=== PATIENT | female | born 2000 | race Hispanic/Latino ===

== ENCOUNTER 2023-05-10 10:00 | Emergency (ER) | payer OTHER ==
[~2023-05-10] VITALS: Ht 157.5 cm; Wt 87.1 kg
[2023-05-10 10:01] VITALS: PULSE 88; RESP 16
[2023-05-10 12:03] LABS: HIV 1&2 ANTIBODY Non-Reactive (Negative)
[2023-05-10 12:04] LABS: HIV-1 p24 Antigen Non-Reactive (Negative)
[2023-05-11 02:06] LABS: HEPATITIS B CORE AB TOTAL Non-Reactive (Nonreactive); HEPATITIS C ANTIBODY Non-Reactive (Nonreactive)
[2023-05-11 02:49] LABS: HEPATITIS B SURFACE ANTIBODY Positive (Reactive)
== END 2023-05-10 11:01 | disposition home or self-care (01) ==
LOC: EDH 10:00
DX: S69.82XA Other specified injuries of left wrist, hand and finger(s), initial encounter (principal); R06.02 Shortness of breath; W46.0XXA Contact with hypodermic needle, initial encounter; Y93.89 Activity, other specified; Y92.89 Other specified places as the place of occurrence of the external cause; Y99.8 Other external cause status
CPT/HCPCS: 36415; 86701; 86704; 86706; 86803; 87390

== ENCOUNTER 2024-02-13 13:23 | Emergency (ER) | payer OTHER ==
[~2024-02-13] VITALS: Ht 157.5 cm; Wt 83.9 kg
[2024-02-13 13:29] VITALS: BP 110/66; PULSE 81; RESP 16; TEMP 97.9; O2SAT 96
--- NOTE | 2024-02-13 14:18 | NUR ---
CONSENT FOR LAB WAS OBTAINED FROM PT.
[2024-02-13 15:15] LABS: HIV 1&2 ANTIBODY Non-Reactive (Negative)
[2024-02-13 15:16] LABS: HIV-1 p24 Antigen Non-Reactive (Negative)
--- NOTE | 2024-02-13 15:31 | ERN ---
ED Note History of Present Illness Stated Complaint: NEEDLE STICK Chief Complaint: Needle Stick Time Seen by MD: 13:36 Time Seen by Midlevel: 13:40 Dictation: 23 year old patient got needles stick while working. Right 2nd finger. No other complaints Allergies: Coded Allergies: No Known Drug Allergies (Unverified Allergy, Unknown, 05/10/23) Home Meds Active Scripts Raltegravir Potassium (Isentress) 400 Mg Tab, 1 TAB PO BID for 28 Days, #60 TAB 0 Refills Prov:WILIAM NORIEGA EPIC RADIANT ANALYST 02/13/24 Emtricitabine/Tenofovir (Tdf) (Emtricitabine-Tenofv 200-300Mg) 200 Mg-300 Mg Tablet, 1 TAB PO DAILY for 30 Days, #28 TAB 0 Refills Prov:WILIAM NORIEGA EPIC RADIANT ANALYST 02/13/24 Past Medical History Past Medical History: No Pertinent History Surgical History: None History: Not Applicable LMP: Feb 10, 2024 Review of System Dictation Constitutional: Negative for fever,chills, and weight loss Eyes: Negative for injury, pain,redness, and discharge ENT: Negative for injury,pain or swelling Cardiovascular: Negative for chest pain, palpitations, and edema Respiratory: Negative for shortness of breath, cough, and wheezing, Abdomen/GI: Negative for abdominal pain, nausea, vomiting, diarrhea, and constipation Back: Negative for injury and pain : Negative for injury, bleeding and discharge MS/Extremity: Negative for injury and deformity Skin: Negative for rash, and discoloration Neuro: Negative for headache, weakness, numbness, tingling, and seizure Psych: Negative for suicide ideation, homicidal ideation, and hallucinations Review of Systems: was completed Initial Vital Sign VS Vital Signs Date Time Temp Pulse Resp B/P (MAP) Pulse Ox O2 Delivery O2 Flow Rate FiO2 02/13/24 13:25 97.9 80 16 110/60 97 Room Air 0 02/13/24 13:29 21 Physical Exam Dictation General: awake, alert, NAD Head/Face: Normocephalic, atraumatic Eyes: PERRL, EOMI, vision at baseline ENT: oral cavity clear, TMs clear, no signs of infection Neck: Trachea midline, supple, no nuchal rigidity Cardiovascular: RRR, normal S1/S2, No MRGs, no JVD Respiratory: CTAB, no respiratory distress, No rales or wheezes Abdomen: Soft, non-tender, non-distended, normal bowel sounds, no guarding or rebound. Skin: Warm, dry, normal turgor, no rash MS/Extremity: Pulses equal, no cyanosis, neurovascular intact, FROM Neuro: COAx4, GCS 15, strength 5/5, CN 2-12 intact, normal cerebellar exam, normal gait, Psych: Normal behavior, mood, and affect normal Results (Laboratory/Radiology) Laboratory/Radiology Laboratory Tests Test 02/13/24 13:59 Hepatitis B Surface Antigen. Non-Reactive (Nonreactive) Hepatitis B Surface Antibody. Positive (Reactive) Hepatitis B Core Total Antibody. Non-Reactive (Nonreactive) Hepatitis C Antibody Non-Reactive (Nonreactive) HIV (1&2) Antibody Non-Reactive (Negative) HIV P24 Antigen, Qualitative Non-Reactive (Negative) Labs Reviewed?: Yes ED Course ED Course Orders Procedure Category Date Status Time Hiv 1-2 W/Reflex To LAB 02/13/24 Complete Confirm 13:43 Hepatitis B Core Total LAB 02/13/24 Complete 13:43 Hepatitis B Surface LAB 02/13/24 Complete Antibody 13:43 Hepatitis B Surface LAB 02/13/24 Complete Antigen 13:43 Hepatitis C Ab LAB 02/13/24 Complete W/Reflex To Pcr 13:43 Vital Signs Date Time Temp Pulse Resp B/P (MAP) Pulse Ox O2 Delivery O2 Flow Rate FiO2 02/13/24 13:29 97.9 81 16 110/66 96 Room Air* 0 21 02/13/24 13:25 97.9 80 16 110/60 97 Room Air 0 Medical Decision Making MDM MDM: 23 year old patient got needles stick while working. Right 2nd finger. No other complaints. HIV nonreactive, [facility] after the the HIV results no need to it for the HEPB. Patient was called back her +lactic HIV medication, hospital policy. Differential diagnosis: Needlestick, HIV, hep B Rationale: Tests considered and ordered secondary to shared decision making include: Previous outside records reviewed: Old ER visits. Risk of complication and/or morbidity or mortality of patient management: None Medications-Per medication reconciliation Need for hospitalization: Patient does not meet criteria for hospitalization. Need for emergency major/minor surgery: No There are no social concerns with this patient. Prescription drug management Prescriptions will include symptomatic care Patient's prior external medical records from other ER visits were reviewed by me as indicated. Prior testing and results from previous visits were reviewed. Prior tests were taken into account with medical decision making and resource utilization, independent historian/historians were used to obtain complete medical history. I independently interpreted the test that were performed, results were reviewed by me and considered findings on radiology if ordered. Medical management and examination interpretation discussions were had by me with other qualified healthcare professionals as indicated for the patient's care. DX & DISP Disposition: Discharge Departure Impression: Primary Impression: Needle stick injury of finger of right hand Condition: Stable Scripts Raltegravir Potassium (Isentress) 400 Mg Tab 1 TAB PO BID for 28 Days, #60 TAB 0 Refills Prov: WILIAM NORIEGA NP 02/13/24 Emtricitabine/Tenofovir (Tdf) (Emtricitabine-Tenofv 200-300Mg) 200 Mg-300 Mg Tablet 1 TAB PO DAILY for 30 Days, #28 TAB 0 Refills Prov: WILIAM NORIEGA NP 02/13/24 Additional Instructions: Return to ER if you notice any signs of infection. Follow up with for the rest of your results. Referrals: SELF,REFERRAL (PCP) Time of Disposition: 15:31 I have reviewed the case, and I agree with, Diagnosis and Plan I performed this substantive portion of this visit. I have reviewed and personally made and approve the management plan that is documented in the note by myself or the CHARLES. I acknowledge full responsibility for the patient's management plan. WILIAM NORIEGA NP Feb 13, 2024 15:31 EMILY GOLDEN MD Feb 14, 2024 10:09
[2024-02-13] MEDS ORDERED: EMTR1TAB23 PO (17:34)
[2024-02-13] MEDS ORDERED: RALT400T PO (17:34)
--- NOTE | 2024-02-13 18:02 | NUR ---
PT TO CALL TOMORROW HERE TO ED TO REMIND ME TO CALL EMPLOYEE HEALTH NURSE SO THAT WE CAN ASK ABOUT HER SENDING IN A [employer] COMP FORM [place] [facility] [place] [facility] [place] S[facility]
[2024-02-13 21:17] LABS: HEPATITIS B SURFACE ANTIBODY Positive (Reactive)
[2024-02-13 21:18] LABS: HEPATITIS B CORE AB TOTAL Non-Reactive (Nonreactive); HEPATITIS B SURFACE ANTIGEN Non-Reactive (Nonreactive); HEPATITIS C ANTIBODY Non-Reactive (Nonreactive)
== END 2024-02-13 18:02 | disposition home or self-care (01) ==
LOC: EDH 13:23
DX: S61.230A Puncture wound without foreign body of right index finger without damage to nail, initial encounter (principal); Z77.21 Contact with and (suspected) exposure to potentially hazardous body fluids; Z79.624 Long term (current) use of inhibitors of nucleotide synthesis; W46.0XXA Contact with hypodermic needle, initial encounter; Y93.89 Activity, other specified; Y92.89 Other specified places as the place of occurrence of the external cause; Y99.8 Other external cause status
CPT/HCPCS: 36415; 86701; 86704; 86706; 86803; 87340; 87390; 99283